=== PATIENT | female | born 1995 | race Caucasian/White ===

== ENCOUNTER 2025-05-07 10:33 | Emergency (ER) | payer MEDICAID ==
[~2025-05-07] VITALS: Ht 154.9 cm; Wt 63.5 kg
[2025-05-07 10:45] VITALS: BP 101/63; TEMP 98.1
[2025-05-07] MEDS ORDERED: AMOX-430 PO (10:55)
[2025-05-07] MEDS ORDERED: TDAP [DIPH/PERTUSSIS/TET] 0.5 ML VIAL IM ONE (11:03)
[2025-05-07] MEDS: TDAP [DIPH/PERTUSSIS/TET] 0.5 ML VIAL IM ONE (11:08)
[2025-05-07 11:11] VITALS: O2SAT 98
[2025-05-07] MEDS ORDERED: IBUP-1490 PO (14:13)
== END 2025-05-07 11:11 | disposition home or self-care (01) ==
LOC: ER 10:42
DX: S61.235A Puncture wound without foreign body of left ring finger without damage to nail, initial encounter (principal); Z88.2 Allergy status to sulfonamides; Z60.2 Problems related to living alone; W53.21XA Bitten by squirrel, initial encounter; Y93.89 Activity, other specified; Y92.89 Other specified places as the place of occurrence of the external cause; Y99.8 Other external cause status
CPT/HCPCS: 99283; 90471; 90715; A6403

== ENCOUNTER 2025-05-07 11:52 | Emergency (ER) | payer MEDICAID ==
[~2025-05-07] VITALS: Ht 152.4 cm; Wt 63.5 kg
[~2025-05-07 11:52] MED LIST: AMOX-430 PO
[2025-05-07] MEDS ORDERED: IBUP-1490 PO (14:13)
[2025-05-07 14:28] VITALS: BP 115/73; TEMP 97.9; O2SAT 98
== END 2025-05-07 14:30 | disposition home or self-care (01) ==
LOC: ER 11:58
DX: M79.631 Pain in right forearm (principal); M79.661 Pain in right lower leg; Z88.2 Allergy status to sulfonamides; Z60.2 Problems related to living alone; W20.8XXA Other cause of strike by thrown, projected or falling object, initial encounter; Y93.89 Activity, other specified; Y92.89 Other specified places as the place of occurrence of the external cause; Y99.9 Unspecified external cause status
CPT/HCPCS: 73090-TC; 73590-TC